=== PATIENT | female | born 1980 | race Caucasian/White ===

== ENCOUNTER 2016-09-26 06:31 | Day surgery (SDC) | payer BC ==
[2016-09-22 15:24] LABS: A/G RATIO 0.7 (0.7-1.9); ALBUMIN 3.4 G/DL (3.5-5.0); ALKALINE PHOSPHATASE 161 U/L (45-117); BUN (BLOOD UREA NITROGEN) 9 MG/DL (6-23); CALCIUM, SERUM 8.8 MG/DL (8.5-10.4); CHLORIDE, SERUM 97 MMOL/L (96-112); CO2 (CARBON DIOXIDE) 27 MMOL/L (24-34); CREATININE 0.35 MG/DL (0.55-1.02); DILANTIN (PHENYTOIN) 12.4 MCG/ML (10.0-20.0); GFR AFRICAN AMERICAN 161 ML/MIN (>=60); GFR NON AFRICAN AMERICAN 139 ML/MIN (>=60); GLOBULIN 4.6 G/DL (2.5-4.1); GLUCOSE, SERUM 80 MG/DL (60-99); POTASSIUM, SERUM 4.3 MMOL/L (3.5-5.3); SGOT(AST) 50 U/L (5-40); SGPT(ALT) 73 U/L (5-65); SODIUM, SERUM 134 MMOL/L (135-148); TOTAL BILIRUBIN 0.3 MG/DL (0-1.2)
--- NOTE | ~2016-09-26 | OP ---
Record Of Operation [facility] [address] [place]. [address] NAME: CANDI HENDERSON : 78 STATUS : [facility]#: [id number] AGE: 36 ADM/REG DATE : 09/26/16 MR#: [id number] REPORT SERV DATE: 09/26/16 DICTATED BY: ZOLTAN SHOOK DATE: 09/26/16 REPORT STATUS : Draft TRANSCRIBED BY: MODL DATE: 09/26/16 DATE OF PROCEDURE: 09/26/2016 PREOPERATIVE DIAGNOSIS: VNS generator failure. POSTOPERATIVE DIAGNOSIS: VNS generator failure. Epilepsy is the working diagnosis. OPERATION: VNS generator change and programming. SUMMARY: After adequate general anesthesia, prep and drape, an incision was made directly over the old incision in the left axilla, and carried down through the skin and subcutaneous tissue. The generator was dissected free from the small pouch with blunt dissection. The generator was brought into the field and this was then disconnected, and the new generator was connected. The leads appeared intact. This was interrogated successfully with 1 milliamp and impedance was okay. This was then placed back into the pocket and interrogated again. Impedance was okay and milliamp was 1. This was then reprogrammed to the previous settings of output 1.75, signal frequency of 30, pulse width 250, signal on time 21, signal off time 0.8, output was 2, pulse width 250 and signal on time was 60. After adequate irrigation, good hemostasis was obtained. The generator was sutured to the anterior chest wall with a 2-0 Prolene suture. Subcutaneous tissue and skin closed in routine fashion after injection of 0.5% Marcaine without. The patient tolerated the procedure well, and was taken to the recovery room in satisfactory condition. ANDREA/JOAQUINA Zoltan Shook M.D. / [id number] CC: Ricardo Cruz Tina
[~2016-09-26 06:31] MED LIST: ADVIL 100100 MG/5 M PEG; CALTRA600D PEG; CLARIT10 PEG; DIASTAT ACUDIAL PR; KCL20UDL PEG; KEPPRA 100 MG/ML PEG; KEPPRA250 PO; KLONO1 PEG; L20 PEG; LORAZEPAM 2 MG/ML PEG; MOMUD PEG; MULTIPLE VIT PEG; NASONEX NAS; PB60 PO; PEPCID40 MG PEG; PHENOBARB32.4 MG PEG; PHENOBARB64.8 MG PEG; PHENY125S PEG; PHENY125S PO; PROTONIX PEG; SINGULAIR1 PO; SYN075 PEG; TRILEP150 PEG; TRIVORA-28 PO; VIMPAT PEG; XOPENEX0.63 MG INH; [UNRECOGNIZED DRUG - MIXTURE] PEG
== END 2016-09-26 10:48 | disposition home or self-care (01) ==
LOC: SDC 06:31
PROVIDERS: Specialist
PROC: 00HE0MZ Insertion of Neurostimulator Lead into Cranial Nerve, Open Approach (ICD-10-PCS; 2016-09-26)
PROC: 0JPT0MZ Removal of Stimulator Generator from Trunk Subcutaneous Tissue and Fascia, Open Approach (ICD-10-PCS; 2016-09-26)
PROC: 0JH60BZ Insertion of Single Array Stimulator Generator into Chest Subcutaneous Tissue and Fascia, Open Approach (ICD-10-PCS; 2016-09-26)
PROC: 00P Central Nervous System and Cranial Nerves, Removal (ICD-10-PCS; principal; 2016-09-26 07:45)
DX: T85.9XXA Unspecified complication of internal prosthetic device, implant and graft, initial encounter (principal); G40.909 Epilepsy, unspecified, not intractable, without status epilepticus; Z88.5 Allergy status to narcotic agent; Z88.8 Allergy status to other drugs, medicaments and biological substances; Z79.51 Long term (current) use of inhaled steroids; Z79.899 Other long term (current) drug therapy; K21.9 Gastro-esophageal reflux disease without esophagitis; Z90.89 Acquired absence of other organs; K58.9 Irritable bowel syndrome, unspecified; Z90.710 Acquired absence of both cervix and uterus; Z87.440 Personal history of urinary (tract) infections; Z98.890 Other specified postprocedural states
CPT/HCPCS: 80053; 80184; 80185; 88300; C1767; J0690; J1885; J2250; J2405; J2710; J3010